=== PATIENT | male | born 1945 | race Caucasian/White ===

== ENCOUNTER → 2022-02-20 09:41 | Outpatient (BNVA) | payer MEDICARE, BC, SELFPAY | PROVIDERS: Family Provider Nurse Practitioner Family; PCP Family Medicine; Visit Provider Internal Medicine Cardiovascular Disease | DX: R55 Syncope and collapse (principal); I10 Essential (primary) hypertension; E78.5 Hyperlipidemia, unspecified; K21.9 Gastro-esophageal reflux disease without esophagitis | CPT/HCPCS: 99203; 99204 ==

== ENCOUNTER 2022-04-07 12:08 | Outpatient (CLI) | payer MEDICARE, BC, SELFPAY ==
--- NOTE | 2022-04-07 12:30 | CT_ITS ---
WS: [id number] CTA THORACIC TECHNIQUE: Contrast enhanced CTA of the thoracic aorta with coronal and sagittal reformatted images a nd maximum intensity projection (MIP) images. CLINICAL INFORMATION: Thoracic Aneurysm COMPARISON: None. DLP: 1176.[address] scans at [facility] use at least one of these dose optimization techniques: automated e xposure control; mA and/or kV adjustment per patient size (includes targeted exams where dose is matc hed to clinical indication); or iterative reconstruction. FINDINGS: No prior comparisons available. Normal caliber ascending thoracic aorta. Moderate aortic calcification with atheromatous disease in t he aortic arch and descending thoracic aorta. 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 This projects dorsally from the descending thoracic aorta with associated peripheral mural thrombus. Wide necked aneurysm mouth. Ectatic proximal descending thoracic aorta measuring 2.9cm in maximum dimension. Ascending thoracic a grabiel is normal caliber measuring 3.1 cm. Celiac and SMA are patent. Small esophageal hiatal hernia. Splenic granulomas. Tiny microcalculi in the gallbladder. No mediasti nal or hilar lymphadenopathy. No axillary lymphadenopathy. Mild thoracic kyphosis. Chronic anterior wedging in the mid and upper thoracic spine. Thoracic ankylo sis. A few calcified granulomas. Slight atelectasis LEFT lower lobe. Adrenal glands are normal. CT/CT angio chest [id number] IMPRESSION: 1. 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 This projects dorsally from the descending thoracic aorta with associated peripheral mural thrombus. Wide necked aneurysm mouth. 2. Normal caliber ascending thoracic aorta measuring 3.1 cm. 3. Ectatic proximal descending thoracic aorta measuring 2.9 CM. 4. Cholelithiasis. This can be further evaluated ultrasound. 5. Small esophageal hiatal hernia.
[2022-04-07 13:19] LABS: Blood Urea Nitrogen 19 mg/dL (8-23)
[2022-04-07] MEDS: iohexol 350 mg/mL 100 mL Btl IV (13:32)
== END 2022-04-07 12:09 | disposition home or self-care (01) ==
LOC: RAD 12:09
PROVIDERS: PCP Family Medicine; Visit Provider Internal Medicine Cardiovascular Disease
DX: I71.23 Aneurysm of the descending thoracic aorta, without rupture; K80.20 Calculus of gallbladder without cholecystitis without obstruction; K44.9 Diaphragmatic hernia without obstruction or gangrene
CPT/HCPCS: 71275; 82565; 84520

== ENCOUNTER 2022-04-14 12:36 | Outpatient (CLI) | payer MEDICARE, BC, SELFPAY ==
--- NOTE | 2022-04-14 13:00 | USCV_ITS ---
Joss Mustafa Age: 76 Gender: M : 1945 Exam Date: 04/14/2022 12:58 Ordering Phys: Magnolia Alvarez MD ([email or web address]) Technologist: Hoa Gibson Exam Location: [facility] [place] Indication: Shortness of breath BP: 128 / 82 HR: 46 Rhythm: Sinus Technical Quality: Adequate MEASUREMENTS (Male / Female) Normal Values 2D ECHO LV Diastolic Diameter PLAX 4.8 cm 4.2 - 5.9 / 3.9 - 5.3 cm LV Systolic Diameter PLAX 3.5 cm IVS Diastolic Thickness 1.1 cm 0.6 - 1.0 / 0.6 - 0.9 cm IVS Systolic Thickness 1.6 cm LVPW Diastolic Thickness 1.1 cm 0.6 - 1.0 / 0.6 - 0.9 cm LVPW Systolic Thickness 2.0 cm LVOT Diameter 2.1 cm LV Ejection Fraction 2D Teich 52.9 % LA Diameter 4.2 cm LA Width 3.7 cm LA Height 5.1 cm RA Width 3.0 cm RA Height 5.4 cm Aorta at Sinotubular Diameter 2.5 cm IVC Diameter 1.6 cm M-MODE MV E Point Septal Separation 0.3 cm DOPPLER AV Peak Velocity 109.0 cm/s LVOT Peak Velocity 65.0 cm/s AV Area Cont Eq vti 2.4 cm squared AV Area Cont Eq pk 2.0 cm squared MV Peak Velocity 122.0 cm/s MV Area PHT 4.4 cm squared Mitral E to A Ratio 1.4 MV E' Velocity 56.0 cm/s Mitral E to MV E' Ratio 9.8 Mitral E to LV E' Lateral Ratio 9.1 Mitral E to LV E' Septal Ratio 10.7 TR Peak Velocity 226.5 cm/s TR Peak Gradient 20.5 mmHg Right Atrial Pressure 3.0 mmHg Pulmonary Artery Systolic Pressu 23.5 mmHg PV Peak Velocity 68.0 cm/s RV Acceleration Time 0.2 s RV Ejection Time 0.4 s RV AcT/ET 0.4 FINDINGS Left Ventricle Normal left ventricular size, systolic function and wall thickness, with no regional wall motion abnormalities. Left ventricular ejection fraction is estimated at 60 %. Normal diastolic function. Right Ventricle Normal right ventricular size and systolic function. Right ventricular systolic pressure 27 mmHg. Right Atrium Normal right atrial size. Left Atrium Mildly increased left atrial size. Mitral Valve Mildly thickened mitral valve. No mitral valve stenosis. Mild mitral valve regurgitation. Aortic Valve Structurally normal trileaflet aortic valve. No aortic valve stenosis. No aortic valve regurgitation. Tricuspid Valve Structurally normal tricuspid valve. Trace tricuspid valve regurgitation. Pulmonic Valve Pulmonic valve not well visualized. No pulmonary valve stenosis. Pericardium No pericardial effusion. Aorta Normal size aortic root and proximal ascending aorta. IVC Normal IVC dimension with >50% respiratory change of the inferior vena cava. CONCLUSIONS 1. Normal left ventricular size, systolic function and wall thickness, with no regional wall motion abnormalities. Left ventricular ejection fraction is estimated at 60 %. Normal diastolic function. 2. Normal right ventricular size and systolic function. 3. Mild mitral valve regurgitation. 4. Pulmonary artery pressure estimated at 27 mmHg. 5. No prior similar studies to compare. Magnolia Alvarez MD (Electronically Signed) Final Date: 18 April 2022 08:32 S
== END 2022-04-14 12:37 | disposition home or self-care (01) ==
LOC: RAD 12:37
PROVIDERS: PCP Family Medicine; Visit Provider Internal Medicine Cardiovascular Disease
DX: R06.02 Shortness of breath (principal); I34.0 Nonrheumatic mitral (valve) insufficiency
CPT/HCPCS: 93306

== ENCOUNTER → 2022-04-29 11:15 | Outpatient (BNVA) | payer MEDICARE, BC, SELFPAY | PROVIDERS: PCP Family Medicine; Visit Provider Internal Medicine Cardiovascular Disease | DX: R55 Syncope and collapse (principal); I10 Essential (primary) hypertension; I71.012 Dissection of descending thoracic aorta; Z87.891 Personal history of nicotine dependence | CPT/HCPCS: 99214 ==

== ENCOUNTER → 2022-11-07 09:52 | Outpatient (BNVA) | payer MEDICARE, BC, SELFPAY | PROVIDERS: PCP Family Medicine; Visit Provider Nurse Practitioner Family | DX: I10 Essential (primary) hypertension (principal); Z87.891 Personal history of nicotine dependence | CPT/HCPCS: 99213 ==

== ENCOUNTER → 2023-06-16 15:02 | Outpatient (BNVA) | payer MEDICARE, BC, SELFPAY | PROVIDERS: PCP Family Medicine; Visit Provider Internal Medicine | DX: I10 Essential (primary) hypertension (principal); I71.40 Abdominal aortic aneurysm, without rupture, unspecified; E78.5 Hyperlipidemia, unspecified; K21.9 Gastro-esophageal reflux disease without esophagitis; Z87.891 Personal history of nicotine dependence | CPT/HCPCS: 99214 ==

== ENCOUNTER → 2023-12-30 09:02 | Outpatient (BNVA) | payer MEDICARE, BC, SELFPAY | PROVIDERS: PCP Family Medicine; Visit Provider Nurse Practitioner Family | DX: I10 Essential (primary) hypertension (principal); I71.23 Aneurysm of the descending thoracic aorta, without rupture; R07.9 Chest pain, unspecified; Z72.0 Tobacco use | CPT/HCPCS: 99214 ==

== ENCOUNTER 2024-01-07 15:00 | Outpatient (CLI) | payer MEDICARE, BC, SELFPAY ==
--- NOTE | 2024-01-07 15:00 | CTR_ITS ---
PROCEDURE INFORMATION: Exam: CTA Chest With Contrast CTA Abdomen With Contrast Exam date and time: 01/07/2024 4:43 PM Age: 78 years old Clinical indication: Cardiovascular condition or disease; Without rupture; Other: Descending aortic aneurysm; Patient HX: Aneurysm of decending thoracic aorta; Additional info: HX of descending aortic aneurysm TECHNIQUE: Imaging protocol: Computed tomographic angiography of the chest with contrast. Exam focused on the arteries. Computed tomographic angiography of the abdomen with contrast. Exam focused on the arteries. 3D rendering (Not supervised by radiologist): MIP and/or 3D reconstructed images were created by the technologist. Radiation optimization: All CT scans at this facility use at least one of these dose optimization techniques: automated exposure control; mA and/or kV adjustment per patient size (includes targeted exams where dose is matched to clinical indication); or iterative reconstruction. Contrast material: OMNI 350; Contrast volume: 100 ml; Contrast route: INTRAVENOUS (IV); COMPARISON: CT angio chest [id number] 04/07/2022 1:22 PM RADIATION DOSE METRICS: Total DLP (mGy-cm): 1066.93 FINDINGS: VASCULATURE: Pulmonary arteries: Normal. No pulmonary emboli. Aorta: There is calcified plaque involving the aorta and coronary vessels. There is focal short-segment aneurysm involving the posterior descending thoracic aorta which is partially thrombosed. The focal aneurysm measures a proximally 4.4 cm in size. This is unchanged when compared to prior exam. There is mild aneurysmal dilatation of the left common iliac artery which measures 2.3 cm in size. Celiac trunk and mesenteric arteries: No occlusion or significant stenosis. Renal arteries: No occlusion or significant stenosis. CHEST: Lungs: There are scattered calcified granulomas. There is minimal linear scarring or atelectasis at the lef lung bases and lingula. No consolidated infiltrates are appreciated. Pleural spaces: Unremarkable. No pneumothorax. No pleural effusion. Heart: Unremarkable. No cardiomegaly. No pericardial effusion. ABDOMEN AND PELVIS: Liver: No mass. There is diffuse fatty infiltration of the liver. Gallbladder and biliary ducts: There are gallstones within the gallbladder. No pericholecystic inflammatory change is noted. Pancreas: Unremarkable. No mass. No ductal dilation. Spleen: Unremarkable. No splenomegaly. Adrenal glands: Unremarkable. No mass. Kidneys and ureters: Unremarkable. No solid mass. No hydronephrosis. Stomach and bowel: Unremarkable. No obstruction. No mucosal thickening. Intraperitoneal space: Unremarkable. No free air. No significant fluid collection. Lymph nodes: Unremarkable. No enlarged lymph nodes. Bones/joints: Unremarkable. No acute fracture. Soft tissues: Unremarkable. CT/[place]d [id number] IMPRESSION: 1. Atherosclerosis without high-grade stenosis. 2. Focal aneurysm projecting posteriorly off the mid to distal descending thoracic aorta unchanged when compared to prior exam. 3. Mild aneurysmal dilatation of the left common iliac artery. 4. Cholelithiasis.
[2024-01-07 16:38] LABS: Blood Urea Nitrogen 24 mg/dL (8-23)
[2024-01-07] MEDS: iohexol 350 mg/mL 500 mL Btl (per mL) IV (16:54)
== END 2024-01-07 15:02 | disposition home or self-care (01) ==
LOC: RAD 15:02
PROVIDERS: PCP Family Medicine; Visit Provider Nurse Practitioner Family
DX: I71.23 Aneurysm of the descending thoracic aorta, without rupture (principal); I25.10 Atherosclerotic heart disease of native coronary artery without angina pectoris; I70.0 Atherosclerosis of aorta; J84.10 Pulmonary fibrosis, unspecified; K80.20 Calculus of gallbladder without cholecystitis without obstruction
CPT/HCPCS: 71275; 74175; 82565; 84520; Q9967

== ENCOUNTER 2024-03-10 07:17 | Outpatient (CLI) | payer MEDICARE, BC, SELFPAY ==
--- NOTE | 2024-03-10 | ECG_ITS ---
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 The perfusion scan will be documented separately. DATA: Baseline heart rate was 52 beats per minute. Baseline blood pressure was 126/63 millimeters of mercury. Target heart rate was 140. Maximum heart rate achieved was 83. which was 59% of the predicted target heart rate. Maximum blood pressure was 128/63 millimeters of mercury. The reason for ending the test was completion of the protocol. The patient did not experience any symptoms. ELECTROCARDIOGRAM: BASELINE: Sinus bradycardia. Normal axis. Old anteroseptal myocardial infarction otherwise, no ST-T changes suggestive of ischemia noted. No arrhythmia noted. EXERCISE: After Lexiscan injection, no ST-T changes suggestive of ischemic noted. No arrhythmia noted. CONCLUSION: Please note due to baseline abnormality of the EKG specificity and sensitivity of the EKG portion of LexiScan MIBI stress test will be low 1. EKG not suggestive of ischemia 2. Lexiscan injection unremarkable. 3. Perfusion scan will be documented separately. [] Electronically Signed On 03-10-2024 19:05:32 CDT by TIERRA CUEVAS [email or web address]
--- NOTE | 2024-03-10 07:32 | NMCV_ITS ---
NM lorne perf SPECT r/s* [id number] Joss Mustafa Age: 78 Gender: M : 1945 Exam Date: 03/10/2024 08:22 Ordering Phys: Dean Bucio Technologist: MARGOT Rock Exam Location: [facility] Indications: CP STRESS TEST Please see separate stress test report in [facility] for full findings IMAGE PROTOCOL Rest/Stress 1 Lexiscan Day Radiopharmaceutical Dose (mCi) Administration Site Administered by Rest: Tc-99m 10.8 IV MARGOT Carter Sestamibi Stress:Tc-99m 32.1 IV MARGOT Carter Sestamibi Rest: 10-Mar-2024 60 Discovery 630 Stress: 10-Mar-2024 30 Discovery 630 0.4mg Lexiscan. Images obtained in supine and prone position. SPECT RESULTS Technical Quality: Good Raw Data Analysis: Normal Image Corrections: No attenuation or motion correction applied Summed Stress Score: 1 Summed Rest Score: 0 Summed Difference Score: 1 PERFUSION FINDINGS FUNCTIONAL RESULTS (calculated via Gated SPECT) Stress Image LV EF (%): 63 Stress EDV (mL):96 TID: 1.33 Stress ESV (mL):36 FUNCTIONAL FINDINGS: There is normal left ventricular systolic function. IMPRESSIONS There appeared to be moderate area of fixed perfusion defect surronded by moderate area of severe reversibility noted in inferior wall of the left ventricle suggetive of old myocardial infarction surrounded by moderate area of severe ischemia. EKG segment of the stress test will be documented separately. Baylee Han MD (Electronically Signed) Final Date: 10 March 2024 11:20 S
[2024-03-10 07:33] VITALS: BMI 32.1
[2024-03-10] MEDS: regadenoson 0.4 Mg/5 ml Syringe IVP (09:06)
[2024-03-10 09:23] VITALS: BP 113/57; PULSE 69
== END 2024-03-10 07:18 | disposition home or self-care (01) ==
PROVIDERS: PCP Family Medicine; Visit Provider Family Medicine
DX: R07.9 Chest pain, unspecified (principal); R94.39 Abnormal result of other cardiovascular function study
CPT/HCPCS: 36415; 78452; 93017; 96374; A9500; J2785

== ENCOUNTER → 2024-08-01 12:34 | Outpatient (BNVA) | payer MEDICARE, SELFPAY | PROVIDERS: PCP Family Medicine; Visit Provider Internal Medicine | DX: I10 Essential (primary) hypertension (principal); R07.9 Chest pain, unspecified | CPT/HCPCS: 99214 ==

== ENCOUNTER 2024-08-12 12:51 | Outpatient (CLI) | payer MEDICARE, SELFPAY ==
[2024-08-12 13:17] LABS: Basophils % 0.5 %; Eosinophils # 0.3 10^3/uL (0.0-0.8); Eosinophils % 4.9 %; Hematocrit 46.3 % (37-53); Lymphocytes # 1.1 10^3/uL (0.8-4.8); Lymphocytes % 19.1 %; Mean Corpuscular Hemoglobin 30.5 pg (27-33); Mean Corpuscular Volume 92.4 fl (82-101); Monocytes # 0.5 10^3/uL (0.2-0.9); Monocytes % 8.3 %; Neutrophils # 3.78 10^3/uL (1.8-7.7); Neutrophils % 66.8 %; Nucleated Red Blood Cells % 0 %; Platelet Count 152 10^3/cmm (157-399); Red Blood Count 5.01 10^6/uL (3.85-5.65); Red Cell Distribution Width 13.6 % (12.1-15.1); White Blood Count 5.66 10^3/uL (3.29-11.43)
[2024-08-12 13:27] LABS: Prothrombin Time (Patient) 12.8 Seconds (12.0-15.1)
[2024-08-12 13:33] LABS: Anion Gap 11.7 (5-19); Blood Urea Nitrogen 22 mg/dL (8-23); Calcium 9.4 mg/dL (8.5-10.5); Carbon Dioxide 32 mmol/L (22-29); Chloride 96 mmol/L (98-107); Glucose 105 mg/dL (65-115); Osmolality Calculated 286 mOsm/kg (285-295); Potassium 3.7 mmol/L (3.5-5.1); Sodium 136 mmol/L (136-145)
== END 2024-08-12 12:52 | disposition home or self-care (01) ==
LOC: LAB 12:52
PROVIDERS: PCP Family Medicine; Visit Provider Internal Medicine
DX: R94.39 Abnormal result of other cardiovascular function study (principal); R55 Syncope and collapse
CPT/HCPCS: 80048; 85025; 85610

== ENCOUNTER 2024-08-16 05:48 | Outpatient (CLI) | payer MEDICARE, SELFPAY ==
[2024-08-15 08:54] VITALS: BP 124/66; PULSE 74; RESP 24
[2024-08-16] VITALS (53 sets, daily range): BP systolic 109–151; BP diastolic 60–92; PULSE 53–95; RESP 12–27; TEMP 36.1–36.7; O2SAT 93–97; BMI 34.2
[2024-08-16] MEDS: diphenhydrAMINE 50 mg Capsule PO (06:00)
--- NOTE | 2024-08-16 07:00 | XACV_ITS ---
Exam Room: 2 Ht: 173 cm Wt: 102 kg BSA: 2.25 m2 Gender: Male : 1945 Any Known Allergies: Other Exam Priority: Routine Procedure(s): Procedure Description: Diagnostic procedure Procedure Description: PCI procedure Procedure Description: Drug Eluting Coronary Stent Procedure Description: PTCA Procedure Description: Miscellaneous Procedure Description: ACT Procedure Description: Coronary Angiography Procedure Description: Pressure Wire Diagnostic Cath Status: Elective Diagnostic Findings * Left Main has no significant disease. * Circumflex has mild luminal irregularities. * Right Coronary Artery has moderate mid vessel disease with 40-50% stenosis. * Mid Left Anterior Descending: severe 80% stenosis, DEJA: 3 flow. * Coronary angiography shows right dominance. PCI Status: Elective PCI Indication: Other Interventional Findings * Mid Left Anterior Descendin% stenosis treated with a AB TREK 2.25X12 RX BALLOON, and CHACE Wallace CRISTHIAN 2.5X15 SUNG. * Procedure detail: Mid to distal LAD stenosis was predilated with 2.25x`12mm semi-compliant balloon. This was followed by 2.5x15 mm resolute cristhian SUNG. At this time final angiogram was performed that showed excellent stent expansion and no residual stenosis. We then engaged RCA with JR 4 Guide catheter. After normalization, we advanced the iFR wire to distal RCA. iFR value of 0.95 was obtained that was non-ischemic. Medical therapy was decided. Guidewire and guide catheter were removed. 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 Conclusions 1. Severe mid to distal LAD stenosis s/p PCI with 1 stent. Moderate mid RCA stenosis s/p iFR that is non-ischemic. 2. Mid Left Anterior Descending was treated with a Balloon, and Drug Eluting Stent. Recommendations * Dual antiplatelet therapy with aspirin and plavix for atleast 1 year. * High intensity statin therapy. * Outpatient cardiology follow up in 2 weeks. Interventional RX Recommendation: PCI w/o planned CABG Diagnostic RX Recommendation: PCI w/o planned CABG Anticoagulation: Heparin Pressures Phase:Rest AO : 99 / 54 ( 72 ) @ 7:59:00 AM 93 / 59 ( 75 ) @ 8:01:00 AM 100 / 63 ( 81 ) @ 8:05:00 AM 102 / 62 ( 80 ) @ 8:13:00 AM 130 / 68 ( 97 ) @ 8:26:00 AM Clinical Evaluation EBL: 5mL-10mL Procedural Details Pre-Procedure Time Out. Identified patient by full name and date of as verbalized by the patient/guarantor. Does the consent match the physician's order: Yes. Accurate & Complete Informed Consent: Yes. Inpatient/Outpatient History & Physical on Chart: Yes. If H&P is completed, is and addenduem needed: No; If yes, is the addendum complete: N/A. Visualize and Verify Site with Patient/Guarantor: N/A. Relevant Radiology Images available: Yes. Pre-op teaching completed and patient verbalized understanding. The risks, benefits, and alternatives of sedation and/or procedure were discussed by physician. The patient agrees to continue. Procedure started. HA Clinical Fraility Score: 3: Managing Well. Scrap Separator Indications: Other. Chest Pain Symptom Assessment: Typical Angina Symptoms. Correct patient, site and procedure confirmed by cath team. Current diagnosis: Chest Pain. PERRLA. 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 Lungs clear x 5 lobes. IV Site on Arrival: 20 gauge in the left anticubital. IV Fluids: 0.9% NaCl at KVO. 0 mL infused prior to laborer bro[employer] farm. Pre Procedural Pulses: bilateral dorsalis pedis was 3+. Pre Procedural Pulses: bilateral posterior tibial was 1+. Pre Procedural Pulses: bilateral radial was 3+. Oxygen started at 2liters/min via nasal canula. right groin was prepped with chloroprep then draped in the usual sterile fashion. right radial was prepped with chloroprep then draped in the usual sterile fashion. Baseline sample Acquired. HR: 88 BPM. Physician arrived. Current Diagnosis : Chest Pain. Physician scrubbed in. Immediate Pre-Procedure Time Out. Correct Patient: Yes; Correct Procedure: Yes; Correct Site: Yes; Correct Patient Position: Yes; Correct Supplies: Yes; Dried Flammable Prep: Yes; Blood Products Available: N/A;. Lidocaine 1% infiltrated to the right radial. Arterial access obtained. A 5 scottish TIG catheter in over wire. Multiple views taken of left coronary artery. Catheter redirected to the RCA. Multiple views taken of right coronary artery. Physician review of cine films. Catheter removed over the exchange wire. 6 scottish XB 3 guide catheter was inserted over the wire. Runthrough guidewire was advanced through the guide catheter to lesion in the mid LAD. Inflation number : 1 A AB TREK 2.25X12 RX BALLOON was prepped and advanced across the Mid LAD , then inflated to 12 BERTRAM for 0:17 seconds. Inflation number: 2 The AB TREK 2.25X12 RX BALLOON was reinflated across the Mid LAD, to 12 BERTRAM for 0:14 seconds. Balloon out. Inflation Number : 3 A CHACE Wallace CRISTHIAN 2.5X15 SUNG -Lot Number# _[id number] EXP: 11/14/2026 was prepped and advanced across the Mid LAD. The stent was deployed at 12 BERTRAM for 0:16 seconds. Stent balloon out over wire. ACT drawn. Results out of range high seconds. Therapeutic limits - pre-heparin administration 90-150 seconds and monitoring heparin during a vascular procedure >250 seconds. Wire out. Guide catheter out. 6 scottish JR 4 guide catheter was inserted over the wire. IFR guidewire was advanced through the guide catheter to lesion in the mid RCA. IFR Results: 0.95. Wire out. ACT drawn. Results 348 seconds. Therapeutic limits - pre-heparin administration 90-150 seconds and monitoring heparin during a vascular procedure >250 seconds. Guide catheter out. A TR Band was successful obtaining hemostatsis at the Right Radial artery insertion site. Vital chart was stopped. Post Procedure: Pulses reassessed and unchanged. PERRLA. 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 No VTE prophylaxis required. Medication's Wasted: Lidocaine 1% = 18 mL. Medication's Wasted: Other = Fentanyl 25 mcg. Medication's Wasted: Nitro = 49.8 mcg. Total IV fluids: 50 mL. Post-op diagnosis: Stent to LAD. Complications: None. Estimated blood loss: 5mL-10mL. Responsiveness - Normal response to verbal stimuli; alert and oriented, PERRLA. Airway - Unaffected, no intervention required; spontaneous ventilation. Circulation: W/N/L, pulses unchanged. Nausea/Vomiting: No. Procedure completed. Patient transferred by wheelchair to 1st floor. Access Site Site: Right Radial artery Sheath Size: 6 Fr Hemostasis Method: TR Band Hemostasis Success: Successful Procedure Medications Start: 7:46 AM Stop: 7:46 AM Medication: Versed 1 mg and Fentanyl 25 mcg Amount: 1 Route: I.V. Start: 7:56 AM Stop: 7:56 AM Medication: Fentanyl Amount: 25 mcg Route: I.V. Start: 7:56 AM Stop: 7:56 AM Medication: Nitrogylcerin Amount: 200 mcg Route: I.A. Start: 7:58 AM Stop: 7:58 AM Medication: Heparin Amount: 5000 units Route: I.V. Start: 8:07 AM Stop: 8:07 AM Medication: Heparin Amount: 5000 units Route: I.V. Start: 8:27 AM Stop: 8:27 AM Medication: Versed Amount: 1 mg Route: I.V. Start: 8:36 AM Stop: 8:36 AM Medication: Fentanyl Amount: 25 mcg Route: I.V. Start: 8:39 AM Stop: 8:39 AM Medication: Plavix Amount: 600 mg Route: P.O. I, the attending physician, have reviewed and verified all procedure medications. Yes, all medications given per verbal order History/Risk Factors Hypertension: Yes Dyslipidemia: Yes Peripheral Arterial Disease (PAD): No Myocardial Infarction (IL): No Obesity: Yes Renal Disease: No Tobacco Use: Current/Recent(w/in 1 year) Prior Interventions PCI: No CABG: No Valve Surgery: No Report Signatures Finalized by Parveen Crook MD on 08/29/2024 08:54 PM
--- NOTE | 2024-08-16 07:35 | W.PM.OPSUD ---
Surgery/Procedure H&P Update DATE OF PROCEDURE: August 16, 2024 DATE H&P PERFORMED: 08/01/24 H&P UPDATE INFORMATION: I have reviewed H&P completed within last 30 days, I have examined patient prior to procedure and No changes to prior documentation PREOP DIAGNOSIS: Worsening angina/abnormal stress test PRIMARY INDICATION FOR PROCEDURE: Worsening angina/abnormal stress test PLANNED PROCEDURE: Operation Date: 08/16/24 07:00 Proposed Procedures p Cardiac Catheterization(Left) - Parveen Crook M.D Possible percutaneous coronary intervention PATIENT REASSESSED PRIOR TO SEDATION, WITH NO CHANGE NOTED: Yes PHYSICAL EXAM: alert, oriented x 3, clear to auscultation bilaterally and regular rate & rhythm AIRWAY EVAL/ANESTHESIA PLAN: normal airway, ASA III, Local Anesthesia, Risks, benefits & alternatives of sedation and/or procedure discussed and Patient agrees to continue as planned ADDITIONAL INFORMATION: Moderate sedation
--- NOTE | 2024-08-16 08:44 | P.PCN_ITS ---
Procedure Note: Date of procedure: 08/16/24 Pre-procedure diagnosis: Worsening angina/ abnormal stress test Post-procedure diagnosis: other (Severe mid to distal LAD stenosis s/p PCI with 1 stent.) Procedure: Left main artery is patent. Ramus artery has moderate 60-70% stenosis. LAD has severe mid to distal LAD stenosis status post successful revascularization with 1 stent. RCA has moderate mid vessel stenosis status post IFR that is nonischemic. Dual antiplatelet therapy with aspirin and plavix Medical therapy for ramus artery stenosis. Estimated blood loss (mL): 10 Complications: None Condition: stable Disposition: floor Coding Level of Care Code Acute Code for [facility] [email or web address]
--- NOTE | 2024-08-16 09:32 | PC.NURSE ---
patient arrived on floor at 0855. Report taken via phone from Katiana Mitchell RN. Patient has TR band on with [address] No hematoma noted on arrival.
[2024-08-16] MEDS: sodium chloride 0.9% 1,000 ML 75 ML IV (11:00)
[2024-08-16] MEDS: diphenhydrAMINE 25 mg Capsule PO (23:58)
[2024-08-17 03:48] LABS: Basophils % 0.5 %; Eosinophils # 0.3 10^3/uL (0.0-0.8); Hematocrit 45.1 % (37-53); Lymphocytes # 0.9 10^3/uL (0.8-4.8); Lymphocytes % 15.1 %; Mean Corpuscular HGB Conc 32.2 g/dL (30-55); Mean Corpuscular Hemoglobin 30.1 pg (27-33); Mean Corpuscular Volume 93.8 fl (82-101); Mean Platelet Volume 9.1 fL (7.4-10.4); Monocytes # 0.5 10^3/uL (0.2-0.9); Monocytes % 8.7 %; Neutrophils # 4.41 10^3/uL (1.8-7.7); Neutrophils % 70.5 %; Nucleated Red Blood Cells % 0 %; Platelet Count 153 10^3/cmm (157-399); Red Blood Count 4.81 10^6/uL (3.85-5.65); Red Cell Distribution Width 13.6 % (12.1-15.1); White Blood Count 6.24 10^3/uL (3.29-11.43)
[2024-08-17 04:11] LABS: Blood Urea Nitrogen 16 mg/dL (8-23); Calcium 9.3 mg/dL (8.5-10.5); Carbon Dioxide 28 mmol/L (22-29); Chloride 100 mmol/L (98-107); Glucose 114 mg/dL (65-115); Osmolality Calculated 288 mOsm/kg (285-295); Sodium 138 mmol/L (136-145)
[2024-08-17 04:22] VITALS: BP 139/80; PULSE 66; RESP 22; TEMP 36.4; O2SAT 95
[2024-08-17 05:13] VITALS: PULSE 53
[2024-08-17 07:35] VITALS: BP 161/81; PULSE 79; RESP 17; TEMP 36.6; O2SAT 95
--- NOTE | 2024-08-17 08:46 | P.DS_ITS ---
Discharge Providers Date of Admission: 08/16/2024 Date of Discharge: August 17, 2024 Attending Provider at Admission: Parveen Crook MD Attending Provider at Discharge: Parveen Crook M.D Primary Care Provider: Dean Bucio Reason for Visit Reason for Visit: R94.39 Brief History: 78 year old man who has been having wors ening chest pain symptoms. Plan for coronary angigoram with possible PCI Hospital Course Hospital Course Patient had PCI of LAD. Overnight did well and was discharged home in a stable condition on dual antiplatelet therapy. No access site complications. Physical Exam Const: COMMON NORMALS: patient oriented x3 and alert Resp: COMMON NORMALS: normal respiratory effort and clear to auscultation bilaterally AUSCULTATION: clear to auscultation bilaterally Cardio: COMMON NORMALS: regular rate, regular rhythm and S2 normal heart sound present RATE: regular rate RHYTHM: regular rhythm HEART SOUNDS: S2 normal heart sound present Back/Pelvis: OTHER: 1+ edema bilaterally Neuro: COMMON NORMALS: patient oriented x3 SENSORIUM/ORIENTATION: Yes alert Discharge Data Studies Completed and Pending Pending at discharge Category Date Time Status [employer] OFFICER request for service Routine Exams 08/16/24 07:00 Taken Laboratory Results WBC 6.24 10^3/uL (3.29-11.43) 08/17/24 03:35 RBC 4.81 10^6/uL (3.85-5.65) 08/17/24 03:35 Hgb 14.50 g/dL (11.27-16.99) 08/17/24 03:35 Hct 45.1 % (37-53) 08/17/24 03:35 MCV 93.8 fl (82-101) 08/17/24 03:35 MCH 30.1 pg (27-33) 08/17/24 03:35 MCHC 32.2 g/dL (30-55) 08/17/24 03:35 RDW 13.6 % (12.1-15.1) 08/17/24 03:35 Plt Count 153 10^3/cmm (157-399) L 08/17/24 03:35 MPV 9.1 fL (7.4-10.4) 08/17/24 03:35 Neut % (Auto) 70.5 % 08/17/24 03:35 Lymph % (Auto) 15.1 % 08/17/24 03:35 Dolores % (Auto) 8.7 % 08/17/24 03:35 Eos % (Auto) 5.0 % 08/17/24 03:35 Baso % (Auto) 0.5 % 08/17/24 03:35 Neut # (Auto) 4.41 10^3/uL (1.8-7.7) 08/17/24 03:35 Lymph # (Auto) 0.9 10^3/uL (0.8-4.8) 08/17/24 03:35 Dolores # (Auto) 0.5 10^3/uL (0.2-0.9) 08/17/24 03:35 Eos # (Auto) 0.3 10^3/uL (0.0-0.8) 08/17/24 03:35 Baso # (Auto) 0.0 10^3/uL (0.0-0.1) 08/17/24 03:35 Nucleated RBC % (auto) 0 % 08/17/24 03:35 Nucleated RBCs # 0.0 /100WBC 08/17/24 03:35 Sodium 138 mmol/L (136-145) 08/17/24 03:35 Potassium 4.0 mmol/L (3.5-5.1) 08/17/24 03:35 Chloride 100 mmol/L (98-107) 08/17/24 03:35 Carbon Dioxide 28 mmol/L (22-29) 08/17/24 03:35 Anion Gap 14.0 (5-19) 08/17/24 03:35 BUN 16 mg/dL (8-23) 08/17/24 03:35 Creatinine 0.8 mg/dL (0.7-1.2) 08/17/24 03:35 GFR Calculation Not Reportable 08/17/24 03:35 Glucose 114 mg/dL (65-115) 08/17/24 03:35 Calculated Osmolality 288 mOsm/kg (285-295) 08/17/24 03:35 Calcium 9.3 mg/dL (8.5-10.5) 08/17/24 03:35 Vitals Last Vital Signs Temp 97.8 F 08/17/24 07:35 Pulse 79 08/17/24 07:35 Resp 17 08/17/24 07:35 BP 161/81 02/19/25 07:35 Pulse Ox 95 08/17/24 07:35 O2 Del Method Room Air 08/17/24 07:35 Discharge Plan Discharge Patient Disposition: Home Prescriptions: New clopidogrel 75 mg Tablet 75 mg PO DAILY Qty: 90 3RF Continued aspirin 81 mg tablet,delayed release (DR/EC) 81 mg PO DAILY cyanocobalamin (vitamin B-12) 500 mcg tablet 500 mcg PO DAILY triamcinolone acetonide 0.5 % cream 1 applic topical BID carvedilol 25 mg tablet 25 mg PO BID Rx Instructions: must administer with a meal/food pramipexole [Mirapex] 0.5 mg tablet 0.5 mg PO BID pantoprazole 40 mg tablet,delayed release (DR/EC) 40 mg PO DAILY pravastatin 40 mg tablet 40 mg PO DAILY oxybutynin chloride 15 mg tablet extended release 24hr 15 mg PO DAILY terbinafine HCl 250 mg tablet 250 mg PO DAILY melatonin 5 mg tablet 10 mg PO .HS zolpidem [Ambien] 10 mg tablet 10 mg PO .HS PRN (Reason: Insomnia) hydrochlorothiazide 25 mg tablet 25 mg PO DAILY furosemide 20 mg tablet 20 mg PO DAILY PRN (Reason: edema) Qty: 90 3RF Discharge Orders: Discharge Order (Routine); Ordered 08/17/24 Ordered By: Parveen Crook Referrals: Dean Bucio [Primary Care Provider] - 4-7 days (Clinic is closed due to inclement weather. Please call for an [id number] appointment within 4 to 7 days. ) Anila Patel FNP [Nurse Practitioner] - 7-10 days (We have notified your physician's clinic of the need for a follow-up appointment to be scheduled. If you have not heard from them within the next 2 business days, please call them directly. ) Diet: Cardiac Activity: Increase activity as tolerated Patient Instructions: Clopidogrel (By mouth) (Plavix), Chest Pain Stoplight, Post Angiogram Home Care Instructions Print Language: Rw[place]an Discharge Date/Time: 08/17/24 11:27 Discharge Attestations Time Spent in Discharge Care*: less than 30 min Quality Metrics Clinical Quality Measures [ No reported AMI, CVA or VTE this stay] Coding Level of Care Code Acute Code for Chg Fwd
[2024-08-17] MEDS: hydroCHLOROthiazide 25 mg Tablet PO (09:10)
[2024-08-17] MEDS: aspirin 81 mg EC Tablet PO (09:10)
[2024-08-17] MEDS: clopidogrel 75 mg Tablet PO (09:10)
--- NOTE | 2024-08-17 09:32 | PC.NURSE ---
The person could not obtain d/c appointment due to clinic being closed for inclement weather.
[2024-08-17 10:22] VITALS: BP 161/81; PULSE 77; RESP 17; O2SAT 93
--- NOTE | 2024-08-17 11:26 | PC.NURSE ---
plavix provided by meds to beds program.discharge instructions given and explained.pt verb understanding of instructions.discharged via ambulatory to exit at this time.spouse to drive pt home
== END 2024-08-17 11:27 | disposition home or self-care (01) ==
LOC: CCL 05:51 → CSU 09:03
PROVIDERS: Nurse Practitioner Family; PCP Family Medicine; Visit Provider Internal Medicine
DX: I25.10 Atherosclerotic heart disease of native coronary artery without angina pectoris (principal); E78.5 Hyperlipidemia, unspecified; I10 Essential (primary) hypertension; E66.9 Obesity, unspecified; Z68.33 Body mass index [BMI] 33.0-33.9, adult; Z79.82 Long term (current) use of aspirin; K21.9 Gastro-esophageal reflux disease without esophagitis
CPT/HCPCS: 36415; 80048; 85025; 85347; 93454; 93571; 96374; 99152; 99153; C1725; C1769; C1874; C1887; C1894; C9600; J1644; J2250; J3010; J3490; J7030; Q0163; Q9967

== ENCOUNTER → 2024-08-31 15:54 | Outpatient (BNVA) | payer MEDICARE, SELFPAY | PROVIDERS: PCP Family Medicine; Visit Provider Nurse Practitioner Family | DX: E78.5 Hyperlipidemia, unspecified (principal); I10 Essential (primary) hypertension | CPT/HCPCS: 36415; 80048; 85025; 99214 ==

== ENCOUNTER 2024-10-21 21:15 | Emergency (ER) | payer MEDICARE, SELFPAY ==
[2024-10-21 21:18] VITALS: BP 170/96; PULSE 83; RESP 18; TEMP 36.2; O2SAT 94
--- NOTE | 2024-10-21 21:26 | PC.NURSE ---
Pt presents to ER with [place] palsy symptoms. consulted Dr Mace and he verified that is likely the cause. Pt unable to move the entire rt side of the face.
--- NOTE | 2024-10-21 21:54 | W.ED.GENADLT ---
HPI - General Adult General: Chief complaint: General Medical Stated complaint: right side facial drooping leg drag Time Seen by Provider: 10/21/24 21:28 History of Present Illness: The patient presents with acute onset of facial symptoms that began this afternoon. The patient's niece's noticed the symptoms and asked if the patient was having a stroke. The patient initially did not feel any different or notice any changes. Later, during dinner, the patient became aware that something was not right. The patient denies pain but reports nasal congestion due to pollen and mouth breathing. The patient experienced one brief episode of diaphoresis. There is no chest pain or shortness of breath. The patient denies fever or chills. The patient reports facial droop, suggesting possible Nick's palsy. Related Data Home Medications ?Medication ?Instructions ?Recorded ?Confirmed aspirin 81 mg tablet,delayed 81 mg PO DAILY 02/20/22 08/31/24 release carvedilol 25 mg tablet 25 mg PO BID 02/20/22 08/31/24 cyanocobalamin (vitamin B-12) 500 500 mcg PO DAILY 02/20/22 08/31/24 mcg tablet oxybutynin chloride 15 mg 15 mg PO DAILY 02/20/22 08/31/24 tablet,extended release 24 hr pantoprazole 40 mg tablet,delayed 40 mg PO DAILY 02/20/22 08/31/24 release pramipexole 0.5 mg tablet (Mirapex) 0.5 mg PO BID 02/20/22 08/31/24 pravastatin 40 mg tablet 40 mg PO DAILY 02/20/22 08/31/24 terbinafine HCl 250 mg tablet 250 mg PO DAILY 02/20/22 08/31/24 triamcinolone acetonide 0.5 % 1 applic topical BID 02/20/22 08/31/24 topical cream melatonin 5 mg tablet 10 mg PO .HS 04/29/22 08/31/24 zolpidem 10 mg tablet (Ambien) 10 mg PO .HS PRN Insomnia 04/29/22 08/31/24 hydrochlorothiazide 25 mg tablet 25 mg PO DAILY 11/07/22 08/31/24 Previous Rx's ?Medication ?Instructions ?Recorded furosemide 20 mg tablet 20 mg PO DAILY PRN edema #90 tabs 10/02/23 clopidogrel 75 mg tablet 75 mg PO DAILY #90 tabs 08/31/24 prednisone 20 mg tablet 40 mg (2 x 20 mg) PO DAILY 11 days 10/21/24 #6 tabs prednisone 50 mg tablet 50 mg PO DAILY 5 days #5 tabs 10/21/24 valacyclovir 1 gram tablet 1,000 mg PO Q8H 7 days #21 tabs 10/21/24 Allergies Allergy/AdvReac Type Severity Reaction Status Date / Time atorvastatin (From Lipitor) Allergy Severe confused, Verified 08/31/24 15:06 Sulfa (Sulfonamide Allergy Severe problems Verified 08/31/24 15:06 Antibiotics) breathing bee venom protein (honey bee) Allergy Unknown Verified 08/31/24 15:06 haloperidol (From Haldol) Allergy Unknown Verified 08/31/24 15:06 naproxen (From Aleve) Allergy Unknown Verified 08/31/24 15:06 [facility] ED PFSH: Medical History Descending thoracic aortic aneurysm Dissecting aneurysm JAQUEZ (dyspnea on exertion) Hypertension Acid reflux Hyperlipidemia Spinal stenosis Cholelithiases Surgical History History of colonoscopy History of appendectomy History of tonsillectomy History of vasectomy Family History Other CAD (coronary artery disease) Diabetes Hypertension Social History Smoking and tobacco/nicotine status: current every day tobacco/nicotine user Physical Exam Const: COMMON NORMALS: no acute distress, patient oriented x3, healthy appearing, alert and well nourished HENMT: COMMON NORMALS: normocephalic HEAD & SCALP: normocephalic OTHER: Loss of creases on the right forehead, right lid droop of both upper and lower lid, right side of mouth droop. Inability to activate all muscles on the right side of his face. Eye: COMMON NORMALS: EOMs intact bilaterally Neck/C-Spine: COMMON NORMALS: full ROM and supple Resp: COMMON NORMALS: normal respiratory effort, No retractions and clear to auscultation bilaterally AUSCULTATION: clear to auscultation bilaterally Cardio: COMMON NORMALS: regular rate, regular rhythm, No gallops present (Cardio) and No murmurs present (Cardio) RATE: regular rate RHYTHM: regular rhythm GI: COMMON NORMALS: Soft to palpation and non-tender PALPATION: Yes Soft to palpation Extremity: GENERAL: Yes normal exam except as noted Neuro: COMMON NORMALS: patient oriented x3 SENSORIUM/ORIENTATION: Yes alert CRANIAL NERVES: Yes CN VII (facial) Laterality: right CN VII findings: facial droop, unable to raise eyebrow(s), weak closing of eye(s) and asymmetrical smile MOTOR EXAM: 5/5 motor strength present throughout, Pronator motor function not present and Normal motor muscle tone present throughout Skin: COMMON NORMALS: no rashes or lesions noted GENERAL SKIN EXAM: no rashes or lesions noted Course Vital Signs: Vital signs: Vital Signs Temperature 97.1 F L 10/21/24 21:18 Pulse Rate 83 10/21/24 21:18 Respiratory Rate 18 10/21/24 21:18 Blood Pressure 170/96 10/21/24 21:18 Pulse Oximetry 94 10/21/24 21:18 [facility] - General Adult Medical Decision Making 79-year-old male presents to the emergency department for evaluation of right-sided facial droop concern for a stroke. The entire facial nerve is involved on that side more consistent with Nick's palsy. Low concern at this time for acute stroke. Patient does not have any other rash or signs of infection at this time. The patient will be discharged home on 5 days of 50 mg steroids with a 5-day taper as well as 7 days of valacyclovir 1 g 3 times daily. Encouraged patient to follow-up with his primary care physician. Patient's blood pressure was elevated here in the emergency department. Patient states that this is not the case at home as he takes his blood pressure regularly. He is watching his blood pressure very careful because of a abdominal aortic aneurysm. Again counseled the patient to follow-up with his primary care physician on this elevated blood pressure. Return precautions were discussed and the patient was discharged home in good condition. Differential Diagnosis Stroke, Nick's palsy, zoster infection. No radiology studies performed this visit Discharge Plan Discharge Patient Disposition: Home Clinical Impression: Facial paralysis/[place] palsy Condition: Stable Prescriptions: New prednisone 50 mg tablet 50 mg PO DAILY 5 Days Qty: 5 0RF prednisone 20 mg tablet 40 mg PO DAILY 11 Days Qty: 6 0RF Rx Instructions: Start this taper after completing the 50 mg course for 5 days. On day 6 take 2 tabs (40mg), on day 7 take 1.5 (30mg), on day 8 take 1 tab (20mg), on days 9 and 10 take half a tablet (10mg). Then stop taking. valacyclovir 1 gram tablet 1,000 mg PO Q8H 7 Days Qty: 21 0RF No Action clopidogrel 75 mg tablet 75 mg PO DAILY Qty: 90 3RF aspirin 81 mg tablet,delayed release (DR/EC) 81 mg PO DAILY cyanocobalamin (vitamin B-12) 500 mcg tablet 500 mcg PO DAILY triamcinolone acetonide 0.5 % cream 1 applic topical BID carvedilol 25 mg tablet 25 mg PO BID Rx Instructions: must administer with a meal/food pramipexole [Mirapex] 0.5 mg tablet 0.5 mg PO BID pantoprazole 40 mg tablet,delayed release (DR/EC) 40 mg PO DAILY pravastatin 40 mg tablet 40 mg PO DAILY oxybutynin chloride 15 mg tablet extended release 24hr 15 mg PO DAILY terbinafine HCl 250 mg tablet 250 mg PO DAILY melatonin 5 mg tablet 10 mg PO .HS zolpidem [Ambien] 10 mg tablet 10 mg PO .HS PRN (Reason: Insomnia) hydrochlorothiazide 25 mg tablet 25 mg PO DAILY furosemide 20 mg tablet 20 mg PO DAILY PRN (Reason: edema) Qty: 90 3RF Discharge Orders: Discharge ED (Routine); Ordered 10/21/24 Ordered By: Lars Law Referrals: Dean Bucio [Primary Care Provider] - (Follow-up with your primary care physician in 1 to 2 weeks for further management of Nick's palsy.) Discharge Diet: Usual diet Discharge Activity: Limit activity as instructed Patient Instructions: Opioid Safety, Pain Management Activity Restrictions/Additional Instructions: Cover your right eye when sleeping. Apply moisturizing drops to that right eye as needed. Follow-up with your primary care physician in 1 to 2 weeks. Print Language: Lao Coding Level of Care Code ED Clinical Applications Specialist for Dianne Buckley
[2024-10-21 22:39] VITALS: BP 148/73; PULSE 69; RESP 16; O2SAT 94
== END 2024-10-21 22:41 | disposition home or self-care (01) ==
PROVIDERS: Emergency Provider General Practice; PCP Family Medicine
DX: G51.0 Bell's palsy (principal); Z79.02 Long term (current) use of antithrombotics/antiplatelets; Z79.82 Long term (current) use of aspirin; Z72.0 Tobacco use; E78.5 Hyperlipidemia, unspecified; I10 Essential (primary) hypertension
CPT/HCPCS: 99283

== ENCOUNTER 2025-01-03 09:49 | Outpatient (CLI) | payer MEDICARE, SELFPAY ==
--- NOTE | 2025-01-03 10:00 | CT_ITS ---
WS: [id number] CTA THORACIC TECHNIQUE: Contrast enhanced CTA of the thoracic aorta with coronal and sagittal reformatted images and maximum intensity projection (MIP) images. CLINICAL INFORMATION: Descending aortic aneurysm COMPARISON: None. DLP: 991.[address] scans at [facility] use at least one of these dose optimization techniques: automated exposure control; mA and/or kV adjustment per patient size (includes targeted exams where dose is matched to clinical indication); or iterative reconstruction. FINDINGS: Normal caliber ascending thoracic aorta. Moderate aortic calcification with atheromatous disease in the aortic arch and descending thoracic aorta.Ectatic proximal descending thoracic aorta measuring 2.9cm in maximum dimension. Ascending thoracic aorta is normal caliber measuring 3.1 cm. Lobulated aneurysm projecting posteriorly involving the descending thoracic aorta measuring 1.6 x 2.7 x 3.2 cm with surrounding mural thrombus AP by transverse by craniocaudal. Celiac and SMA are patent. Small esophageal hiatal hernia. Splenic granulomas. Cholelithiasis. No mediastinal or hilar lymphadenopathy. No axillary lymphadenopathy. Mild thoracic kyphosis. Chronic anterior wedging in the mid and upper thoracic spine. Thoracic ankylosis. CT/CT angio chest [id number] IMPRESSION: 1. Stable lobulated aneurysm involving the descending thoracic aorta. Focal ou tpouching measures 1.6 x 2.7 x 3.2 cm unchanged. Descending thoracic aorta at t his level measures approximately 3.3 cm in maximum dimension. 2. Cholelithiasis. 3. No other significant changes compared to previous
[2025-01-03 10:20] LABS: Blood Urea Nitrogen 20 mg/dL (8-23)
[2025-01-03] MEDS: iohexol 350 mg/mL 500 mL Btl (per mL) IV (10:30)
== END 2025-01-03 09:50 | disposition home or self-care (01) ==
LOC: RAD 09:50
PROVIDERS: PCP Family Medicine; Visit Provider Nurse Practitioner Family
DX: I71.23 Aneurysm of the descending thoracic aorta, without rupture (principal)
CPT/HCPCS: 71275; 82565; 84520

== ENCOUNTER → 2025-02-14 08:13 | Outpatient (BNVA) | payer MEDICARE, SELFPAY | PROVIDERS: PCP Family Medicine; Referring Provider Family Medicine; Visit Provider Specialist | DX: R20.0 Anesthesia of skin (principal) | CPT/HCPCS: 95911 ==

== ENCOUNTER → 2025-04-18 09:03 | Outpatient (BNVA) | payer MEDICARE, SELFPAY | PROVIDERS: PCP Family Medicine; Visit Provider Orthopaedic Surgery | DX: G56.03 Carpal tunnel syndrome, bilateral upper limbs (principal) | CPT/HCPCS: 99204 ==

== ENCOUNTER 2025-04-26 06:56 | Day surgery (SDC) | payer MEDICARE, SELFPAY ==
[2025-04-26] VITALS (8 sets, daily range): BP systolic 90–146; BP diastolic 59–89; PULSE 61–94; RESP 15–17; TEMP 36.3–36.7; O2SAT 92–97; BMI 36.5
--- NOTE | 2025-04-26 07:59 | W.PM.OPSUD ---
Surgery/Procedure H&P Update DATE OF PROCEDURE: April 26, 2025 DATE H&P PERFORMED: 04/18/25 H&P UPDATE INFORMATION: I have reviewed H&P completed within last 30 days, I have examined patient prior to procedure and No changes to prior documentation PREOP DIAGNOSIS: Right carpal tunnel syndrome PLANNED PROCEDURE: Operation Date: 04/26/25 08:55 Proposed Procedures p RIGHT Carpal Tunnel Release(Right) - Memo Perez MD
[2025-04-26] MEDS: ceFAZolin 2,000 mg SDV 2000 MG IVP (08:02)
--- NOTE | 2025-04-26 08:03 | ANES.PREANE2 ---
Pre-Anesthetic Assessment Height/Weight: Height 1.73 m Weight 108.862 kg Temp Pulse Resp BP Pulse Ox O2 Del Method 97.7 F 64 16 146/71 94 Room Air 04/26/25 07:43 04/26/25 07:43 04/26/25 07:43 04/26/25 07:43 04/26/25 07:43 04/26/25 07:43 Preop Diagnosis: Right carpal tunnel syndrome Operation Date: 04/26/25 08:55 Proposed Procedures p RIGHT Carpal Tunnel Release(Right) - Memo Perez MD Familial anesthetic complications: None Was Beta Nery taken within 24 hours: N/A Was Clonidine taken within 24 hours: N/A Last intake: Intake Last Liquid Date 04/25/25 Last Liquid Time 22:00 Last Solid Date 04/25/25 Last Solid Time 22:00 Social Alcohol and Tobacco Exam alert, oriented x 3, clear to auscultation bilaterally and regular rate & rhythm Airway Dentition: false Comments: Comments: full jennings CV/HEM Coronary Artery Disease (stents in 2024 - pcp permitted holdingp plavix for 3-4 days) and Hypertension TAA GI Gastroesophageal Reflux Disease Metabolic Hyperlipidemia Anesthetic Plan ASA status: 4 Anesthesia: MAC Risk of > 500 ml blood loss (7ml/kg in children): No Medications/Allergies Home Medications ?Medication ?Instructions ?Recorded ?Confirmed ?Last Taken ?Type aspirin 81 mg tablet,delayed 81 mg PO DAILY 02/20/22 04/25/25 04/22/25 History release carvedilol 25 mg tablet 25 mg PO BID 02/20/22 04/25/25 04/26/25 History cyanocobalamin (vitamin B-12) 500 500 mcg PO DAILY 02/20/22 04/25/25 04/24/25 History mcg tablet oxybutynin chloride 15 mg 15 mg PO DAILY 02/20/22 04/25/25 04/24/25 History tablet,extended release 24 hr pantoprazole 40 mg tablet,delayed 40 mg PO DAILY 02/20/22 04/25/25 04/24/25 History release pramipexole 0.5 mg tablet (Mirapex) 0.5 mg PO BID 02/20/22 04/25/25 04/24/25 History pravastatin 40 mg tablet 40 mg PO DAILY 02/20/22 04/25/25 04/24/25 History melatonin 5 mg tablet 10 mg PO .HS 04/29/22 04/25/25 04/24/25 History zolpidem 10 mg tablet (Ambien) 10 mg PO .HS PRN Insomnia 04/29/22 04/25/25 04/24/25 History hydrochlorothiazide 25 mg tablet 25 mg PO DAILY 11/07/22 04/25/25 04/24/25 History furosemide 20 mg tablet 20 mg PO DAILY PRN edema #90 tabs 10/02/23 04/25/25 04/24/25 Rx clopidogrel 75 mg tablet 75 mg PO DAILY #90 tabs 08/31/24 04/25/25 04/22/25 Rx bumetanide 1 mg tablet 1 mg PO DAILY 04/18/25 04/25/25 04/22/25 History memantine 10 mg tablet 10 mg PO DAILY 04/18/25 04/25/25 04/25/25 History Allergies Allergy/AdvReac Type Severity Reaction Status Date / Time atorvastatin (From Lipitor) Allergy Severe confused, Verified 04/18/25 09:06 Sulfa (Sulfonamide Allergy Severe problems Verified 04/18/25 09:06 Antibiotics) breathing bee venom protein (honey bee) Allergy Unknown Verified 04/18/25 09:06 haloperidol (From Haldol) Allergy Unknown Verified 04/18/25 09:06 naproxen (From Aleve) Allergy Unknown Verified 04/18/25 09:06 Current Medications Generic Name Dose Route Start Last Admin Trade Name Freq PRN Reason Stop Dose Admin Sodium Chloride 1,000 mls @ 30 mls/hr 04/26/25 07:30 04/26/25 08:00 Sodium Chloride 0.9% IV 04/27/25 07:29 30 mls/hr .Q24H BRIGETTE Administration PFSH Anesthesia Medical History Descending thoracic aortic aneurysm Dissecting aneurysm JAQUEZ (dyspnea on exertion) Hypertension Acid reflux Hyperlipidemia Spinal stenosis Cholelithiases Surgical History History of colonoscopy History of appendectomy History of tonsillectomy History of vasectomy Family History Other CAD (coronary artery disease) Diabetes Hypertension Social History Smoking and tobacco/nicotine status: light tobacco/nicotine user Data Anesthesia Cardiac Studies: Echocardiogram 04/14/22 Sestamibi Stress Test (Cardiology) 03/10/24 Cardiac Event Monitor 02/20/22
[2025-04-26] MEDS: BUPivacaine 0.5% INJ 10 mL INJECTION (08:27)
--- NOTE | 2025-04-26 08:37 | PM.OP ---
Operative Report Date of procedure: April 26, 2025 Surgeon: Memo Perez MD Procedure: Preoperative diagnosis: Right carpal tunnel syndrome Postoperative diagnosis: Same Procedure: Right carpal tunnel release Surgeon: Memo Coemr MD Anesthesia: IV sedation with local anesthetic EBL: None Indications: Joss is an 79-year-old white male was referred to the orthopedic clinics for evaluation of carpal tunnel syndrome of the right hand. He has already had nerve conduction test demonstrating significant compression of the median nerve at the wrist region. Clinical exam is also consistent with this. Therefore at this time patient was offered a right carpal tunnel release. All risk benefits treatment alternatives were discussed. He is also informed that it may take up to 17 weeks to know if we have full resolution of his symptoms. He also understands that he may have permanent damage to the nerve already and may still have some symptoms after this. Procedure: After obtaining consent patient taken to the operative room placed up table supine position pneumatic cuffs placed on proximal right arm. Right arm was prepped and draped usual fashion. After surgical timeout hand was exsanguinated with a Esmarch wrap and an Esmarch wrap was used as a tourniquet at mid forearm. IV sedation had been administered. I then anesthetized the volar surface of the hand in the area of the carpal tunnel release with half percent Marcaine plain. Once good anesthetic effect was achieved a longitudinal incision was made just ulnar to the mid palmar crease extending down to the distal flexion crease of the wrist. Sharp dissecting it all the way down to the transverse carpal ligament. This was divided along the course of its fibers and the skin incision. Transverse carpal ligament is found to be very thick. Once into the carpal tunnel the remainder of the ligament was released with Metzenbaum scissors and a sharp and blunt fashion both proximally and distally. Once adequate release of been achieved skin was closed with 3-0 Prolene horizontal running mattress suture. Esmarch was removed. Wound was then cleaned and dry dressed with Xeroform gauze sterile gauze dressing Kerlix wrap and Ish wrap for compression. Patient awakened transferred to cover room in stable condition
--- NOTE | 2025-04-26 09:03 | SUR.PHASEII ---
ROM AND SENSATION TO FINGERS OF RIGHT HAND.
--- NOTE | 2025-04-26 09:50 | ANE.PACU2 ---
Inpatient post-anesthesia follow up: Airway intact: Yes Vital signs: Temperature 97.8 F Pulse Rate 94 Respiratory Rate 16 Blood Pressure 111/59 Pulse Oximetry 94 Oxygen Delivery Me thod Room Air Oxygen Flow Rate 6 Fraction of Inspir ed Oxygen Hydration adequate: Yes Nausea and vomiting: No Pain level: 1 Mental status: Baseline
== END 2025-04-26 09:50 | disposition home or self-care (01) ==
PROVIDERS: PCP Family Medicine; Visit Provider Orthopaedic Surgery
PROC: (CPT 64721; principal; 2025-04-26 08:55)
DX: G56.01 Carpal tunnel syndrome, right upper limb (principal); I25.10 Atherosclerotic heart disease of native coronary artery without angina pectoris; Z95.5 Presence of coronary angioplasty implant and graft; I10 Essential (primary) hypertension; K21.9 Gastro-esophageal reflux disease without esophagitis; E78.5 Hyperlipidemia, unspecified; Z79.82 Long term (current) use of aspirin; F17.200 Nicotine dependence, unspecified, uncomplicated
CPT/HCPCS: 64721; J0690; J2704; J3010; J3490; J7030

== ENCOUNTER → 2025-05-09 13:48 | Outpatient (BNVA) | payer MEDICARE, SELFPAY | PROVIDERS: PCP Family Medicine; Visit Provider Orthopaedic Surgery | DX: Z98.890 Other specified postprocedural states (principal); G56.03 Carpal tunnel syndrome, bilateral upper limbs; Z72.0 Tobacco use | CPT/HCPCS: 99024 ==

== ENCOUNTER 2025-06-07 10:05 | Day surgery (SDC) | payer MEDICARE, SELFPAY ==
[2025-06-07] VITALS (7 sets, daily range): BP systolic 127–186; BP diastolic 45–79; PULSE 67–79; RESP 17–18; TEMP 36.3–36.7; O2SAT 92–97; BMI 34.9
--- NOTE | 2025-06-07 11:10 | W.PM.OPSUD ---
Surgery/Procedure H&P Update DATE OF PROCEDURE: June 07, 2025 DATE H&P PERFORMED: 04/20/25 H&P UPDATE INFORMATION: I have reviewed H&P completed within last 30 days, I have examined patient prior to procedure and No changes to prior documentation CHANGES TO PREVIOUS DOCUMENTATION: I reviewed the previous H&P and have evaluated the patient today that he has no changes in medication no change in health. No new procedures. Review of H&P from 04/20/2025 is still good. Heart lungs were listened to today and there within normal limits. PLANNED PROCEDURE: Operation Date: 06/07/25 12:00 Proposed Procedures p LEFT Carpal Tunnel Release(Left) - Memo Perez MD
--- NOTE | 2025-06-07 11:56 | ANES.PREANE2 ---
Pre-Anesthetic Assessment Height/Weight: Height 5 ft 8 in Weight 230 lb Temp Pulse Resp BP Pulse Ox O2 Del Method 97.5 F L 72 18 132/76 92 Room Air 06/07/25 10:26 06/07/25 10:26 06/07/25 10:26 06/07/25 10:26 06/07/25 10:26 06/07/25 10:26 Preop Diagnosis: Carpal tunnel syndrome Operation Date: 06/07/25 12:00 Proposed Procedures p LEFT Carpal Tunnel Release(Left) - Memo Perez MD Was Beta Nery taken within 24 hours: Yes Was Clonidine taken within 24 hours: N/A Last intake: Intake Last Liquid Date 06/06/25 Last Liquid Time 21:30 Last Solid Date 06/06/25 Last Solid Time 21:30 Social Tobacco and No alcohol Exam alert, oriented x 3 and regular rate & rhythm Airway Submandibular: within normal limits Cervical ROM: within normal limits Mallampati: Class III Dentition: false Anesthetic Plan ASA status: 3 Anesthesia: Choice Other: No prior issues with anesthesia NPO since yesterday evening Patient had PCI x 2 in July of this year. Plavix last taken 06/09/2025 Hypertension on carvedilol Patient states that he is able to still chop wood in his yard Medications/Allergies Home Medications ?Medication ?Instructions ?Recorded ?Confirmed ?Last Taken ?Type aspirin 81 mg tablet,delayed 81 mg PO DAILY 02/20/22 06/06/25 06/07/25 09:30 History release carvedilol 25 mg tablet 25 mg PO BID 02/20/22 06/06/25 06/01/25 07:00 History cyanocobalamin (vitamin B-12) 500 500 mcg PO DAILY 02/20/22 06/06/25 06/06/25 History mcg tablet pramipexole 0.5 mg tablet (Mirapex) 0.5 mg PO BID 02/20/22 06/06/25 06/06/25 History pravastatin 40 mg tablet 40 mg PO DAILY 02/20/22 06/06/25 06/06/25 History melatonin 5 mg tablet 10 mg PO .HS 04/29/22 06/06/25 06/06/25 History zolpidem 10 mg tablet (Ambien) 10 mg PO .HS PRN Insomnia 04/29/22 06/06/25 06/06/25 History clopidogrel 75 mg tablet 75 mg PO DAILY #90 tabs 08/31/24 06/06/25 06/01/25 07:00 Rx memantine 10 mg tablet 10 mg PO DAILY 04/18/25 06/06/25 06/06/25 History Allergies Allergy/AdvReac Type Severity Reaction Status Date / Time atorvastatin (From Lipitor) Allergy Severe confused, Verified 06/07/25 10:23 Sulfa (Sulfonamide Allergy Severe problems Verified 06/07/25 10:23 Antibiotics) breathing bee venom protein (honey bee) Allergy Unknown Verified 06/07/25 10:23 haloperidol (From Haldol) Allergy Unknown Verified 06/07/25 10:23 naproxen (From Aleve) Allergy Unknown Verified 06/07/25 10:23 Current Medications Generic Name Dose Route Start Last Admin Trade Name Freq PRN Reason Stop Dose Admin Sodium Chloride 1,000 mls @ 30 mls/hr 06/07/25 10:15 06/07/25 10:38 Sodium Chloride 0.9% IV 06/08/25 10:14 30 mls/hr .Q24H BRIGETTE Administration PFSH Anesthesia Medical History Descending thoracic aortic aneurysm Dissecting aneurysm JAQUEZ (dyspnea on exertion) Hypertension Acid reflux Hyperlipidemia Spinal stenosis Cholelithiases Surgical History History of colonoscopy History of appendectomy History of tonsillectomy History of vasectomy Family History Other CAD (coronary artery disease) Diabetes Hypertension Social History Smoking and tobacco/nicotine status: light tobacco/nicotine user Data Anesthesia Cardiac Studies: Echocardiogram 04/14/22 Sestamibi Stress Test (Cardiology) 03/10/24 Cardiac Event Monitor 02/20/22
[2025-06-07] MEDS: ceFAZolin 2,000 mg SDV 2000 MG IVP (12:52)
[2025-06-07] MEDS: BUPivacaine 0.5% INJ 10 mL INJECTION (13:12)
--- NOTE | 2025-06-07 13:16 | P.OP_ITS ---
Operative Report Date of procedure: June 07, 2025 Surgeon: Memo Perez MD Procedure: Preoperative diagnosis: Left carpal tunnel syndrome Postoperative diagnosis: Same Procedure: Left right carpal tunnel release Surgeon: Memo Perez MD Anesthesia: IV sedation with local anesthetic Indications: Joss is a 79-year-old white male who had previously presented to the orthopedic clinic for his positive nerve conduction test demonstrating carpal tunnel syndrome of bilateral hands. He has already had his right carpal tunnel release within the last month and a half. He is doing quite well from that. Now requesting in the left carpal tunnel release. Patient understand all risk benefits treatment alternatives. He does understand he may have permanent damage to the nerve already and have continued symptoms after this. He also understands may take up to 17 weeks for this to heal. Procedure: After obtaining written consent patient taken to the operating room placed on the operative table supine position and IV sedation was administered. Once good sedation achieved left upper extremities prepped and draped usual fashion. Surgical timeout was undertaken and once is completed half percent Marcaine was injected around the palmar surface at the carpal tunnel on the left wrist for anesthetic effect. Subsequently longitudinal incision made from distal flexion crease of the wrist along the ulnar border of the mid palmar crease distally approximately 2 to 2-1/2 cm. Sharp to [address] down to subcutaneous tissues. Sharp dissection taken down to transverse carpal ligament and this is divided longitudinally along the course of the skin incision with #15 blade. Transverse carpal ligament was very thickened and fibrous. Once within the carpal tunnel and blunt sharp fashion Metzenbaum scis sors were used to split the transverse carpal ligament both proximally and distally. Once adequate decompression was achieved wound was washed with sterile irrigation and the remainder of the Marcaine was placed within it. Wound was closed with running horizontal mattress suture of 3-0 Prolene. Wounds are clean and dry dressed Xeroform gauze sterile gauze dressing Kerlix wrap and Ish wrap for compression. Patient was awakened transferred to cover room stable condition
[2025-06-07] MEDS: HYDROcodone-acetaminophen 5-325 mg Tablet 1 TAB PO (14:10)
--- NOTE | 2025-06-07 14:23 | ANE.PACU2 ---
Inpatient post-anesthesia follow up: Airway intact: Yes Vital signs: Temperature 97.4 F Pulse Rate 79 Respiratory Rate 18 Blood Pressure 140/45 Pulse Oximetry 95 Oxygen Delivery Me thod Room Air Oxygen Flow Rate Fraction of Inspir ed Oxygen Hydration adequate: Yes Nausea and vomiting: No Pain level: 1 Mental status: Baseline
== END 2025-06-07 14:23 | disposition home or self-care (01) ==
PROVIDERS: PCP Family Medicine; Visit Provider Orthopaedic Surgery
PROC: (CPT 64721; principal; 2025-06-07 11:50)
DX: G56.02 Carpal tunnel syndrome, left upper limb (principal); I10 Essential (primary) hypertension; Z79.02 Long term (current) use of antithrombotics/antiplatelets; Z79.82 Long term (current) use of aspirin; E78.5 Hyperlipidemia, unspecified; K21.9 Gastro-esophageal reflux disease without esophagitis; F17.200 Nicotine dependence, unspecified, uncomplicated
CPT/HCPCS: 64721; J0690; J2704; J3010; J3490; J7030; J9999

== ENCOUNTER → 2025-06-16 11:21 | Outpatient (BNVA) | payer MEDICARE, SELFPAY | PROVIDERS: PCP Family Medicine; Visit Provider Orthopaedic Surgery | DX: G56.03 Carpal tunnel syndrome, bilateral upper limbs (principal) | CPT/HCPCS: 99024 ==